=== PATIENT | male | born 1985 | race Caucasian/White ===

== ENCOUNTER 2019-11-28 | Emergency (ER) | payer OTHER ==
[2019-11-28] MEDS ORDERED: MOTRIN400 MG/TAB PO (21:11)
[2019-11-28] MEDS ORDERED: TYLENOL500 MG PO (21:11)
[2019-11-28] MEDS ORDERED: KEFLEX500 M1 PO (21:11)
== END 2019-11-28 21:30 | disposition home or self-care (01) | DRG 563 ==
DX: S92.421A Displaced fracture of distal phalanx of right great toe, initial encounter for closed fracture (principal); S92.531A Displaced fracture of distal phalanx of right lesser toe(s), initial encounter for closed fracture; W20.8XXA Other cause of strike by thrown, projected or falling object, initial encounter; Y92.410 Unspecified street and highway as the place of occurrence of the external cause; Y99.8 Other external cause status